=== PATIENT | female | born 1975 | race Caucasian/White ===

== ENCOUNTER 2023-03-05 07:13 | Day surgery (SDC) | payer OTHER ==
[~2023-03-05] VITALS: Ht 154.9 cm; Wt 56.2 kg
[~2023-03-05 07:13] MED LIST: KEFLEX500 MG PO; SURFAK240 M1 PO; ULTRACET PO
[2023-03-05] MEDS ORDERED: SURFAK240 M1 PO (13:40)
[2023-03-05] MEDS ORDERED: PERCOCET 5-3251 EACH PO (13:40)
[2023-03-05] MEDS ORDERED: MIRALAX510 GM PO (13:40)
[2023-03-05] MEDS ORDERED: NEURONTIN600 M1 PO (13:41)
[2023-03-05] MEDS ORDERED: SULFAMETHOXAZO1 EACH PO (13:42)
== END 2023-03-05 18:10 | disposition home or self-care (01) ==
LOC: CIR.AMB 07:13
PROVIDERS: ATTEND Surgery
DX: K42.9 Umbilical hernia without obstruction or gangrene (principal); K43.0 Incisional hernia with obstruction, without gangrene; D17.79 Benign lipomatous neoplasm of other sites; Z20.822 Contact with and (suspected) exposure to COVID-19